=== PATIENT | male | born 1985 | race African-American/Black ===

== ENCOUNTER 2017-05-12 18:13 | Emergency (ER) | payer MEDICAID ==
[~2017-05-12] VITALS: Ht 165.1 cm; Wt 77.2 kg
[2017-05-12 18:43] VITALS: BP 123/87
== END 2017-05-12 19:55 | disposition left against medical advice (07) ==
LOC: ER 18:13
DX: M27.8 Other specified diseases of jaws (principal); J45.909 Unspecified asthma, uncomplicated; F17.200 Nicotine dependence, unspecified, uncomplicated; Z88.0 Allergy status to penicillin; Z53.21 Procedure and treatment not carried out due to patient leaving prior to being seen by health care provider